=== PATIENT | male | born 1935 | race Caucasian/White ===

== ENCOUNTER → 2017-07-21 06:07 | Outpatient (CLI) | payer OTHER ==
[~2017-07-21 06:07] MED LIST: CALTRATE 61 TAB.CHEW; DIOVAN160 M1; HEMATRON P.O.1 UDTAB; LIPITOR40 MG; NORVASC5 MG; SECTRAL200 MG; [UNRECOGNIZED DRUG - OTHER]
== END | disposition home or self-care (01) ==
LOC: LAB 06:07
DX: Z80.42 Family history of malignant neoplasm of prostate (principal); C90.00 Multiple myeloma not having achieved remission; D57.3 Sickle-cell trait; C61 Malignant neoplasm of prostate; Z85.46 Personal history of malignant neoplasm of prostate; D68.8 Other specified coagulation defects; E08.65 Diabetes mellitus due to underlying condition with hyperglycemia; E08.21 Diabetes mellitus due to underlying condition with diabetic nephropathy; E08.22 Diabetes mellitus due to underlying condition with diabetic chronic kidney disease; E08.42 Diabetes mellitus due to underlying condition with diabetic polyneuropathy; I10 Essential (primary) hypertension; I73.89 Other specified peripheral vascular diseases; E78.4 Other hyperlipidemia; E03.8 Other specified hypothyroidism; D50.8 Other iron deficiency anemias; D51.8 Other vitamin B12 deficiency anemias; R68.89 Other general symptoms and signs; D64.89 Other specified anemias; I11.9 Hypertensive heart disease without heart failure; E78.2 Mixed hyperlipidemia; R31.9 Hematuria, unspecified; E11.9 Type 2 diabetes mellitus without complications

== ENCOUNTER 2017-10-29 11:07 | Emergency (ER) | payer OTHER ==
[~2017-10-29] VITALS: Ht 172.7 cm; Wt 94.3 kg
== END 2017-10-29 13:43 | disposition home or self-care (01) ==
LOC: ER 11:07
DX: J45.998 Other asthma (principal); J11.1 Influenza due to unidentified influenza virus with other respiratory manifestations

== ENCOUNTER → 2017-11-08 09:44 | Outpatient (CLI) | payer OTHER | END | disposition home or self-care (01) | LOC: LAB 09:44 | DX: Z80.42 Family history of malignant neoplasm of prostate (principal); C90.00 Multiple myeloma not having achieved remission; D57.3 Sickle-cell trait; C61 Malignant neoplasm of prostate; Z85.46 Personal history of malignant neoplasm of prostate; D68.8 Other specified coagulation defects; E08.65 Diabetes mellitus due to underlying condition with hyperglycemia; E08.21 Diabetes mellitus due to underlying condition with diabetic nephropathy; E08.22 Diabetes mellitus due to underlying condition with diabetic chronic kidney disease; E08.42 Diabetes mellitus due to underlying condition with diabetic polyneuropathy; I10 Essential (primary) hypertension; E03.8 Other specified hypothyroidism; E78.2 Mixed hyperlipidemia; C18.9 Malignant neoplasm of colon, unspecified; I73.89 Other specified peripheral vascular diseases; E78.4 Other hyperlipidemia ==

== ENCOUNTER → 2018-03-15 06:06 | Outpatient (CLI) | payer OTHER | END | disposition home or self-care (01) | LOC: LAB 06:06 | DX: Z80.42 Family history of malignant neoplasm of prostate (principal); C90.00 Multiple myeloma not having achieved remission; D57.3 Sickle-cell trait; C61 Malignant neoplasm of prostate; Z85.46 Personal history of malignant neoplasm of prostate; D68.8 Other specified coagulation defects; E08.65 Diabetes mellitus due to underlying condition with hyperglycemia; E08.21 Diabetes mellitus due to underlying condition with diabetic nephropathy; E08.22 Diabetes mellitus due to underlying condition with diabetic chronic kidney disease; E08.42 Diabetes mellitus due to underlying condition with diabetic polyneuropathy; I10 Essential (primary) hypertension; I73.89 Other specified peripheral vascular diseases; E78.4 Other hyperlipidemia; E03.8 Other specified hypothyroidism; D50.8 Other iron deficiency anemias; D51.8 Other vitamin B12 deficiency anemias ==

== ENCOUNTER → 2018-05-23 06:29 | Outpatient (CLI) | payer OTHER | END | disposition home or self-care (01) | LOC: LAB 06:29 | DX: Z80.42 Family history of malignant neoplasm of prostate (principal); C90.00 Multiple myeloma not having achieved remission; D57.3 Sickle-cell trait; C61 Malignant neoplasm of prostate; Z85.46 Personal history of malignant neoplasm of prostate; D68.8 Other specified coagulation defects; I10 Essential (primary) hypertension; I73.89 Other specified peripheral vascular diseases; E03.8 Other specified hypothyroidism; D50.8 Other iron deficiency anemias; D51.8 Other vitamin B12 deficiency anemias; E78.2 Mixed hyperlipidemia; E11.65 Type 2 diabetes mellitus with hyperglycemia ==

== ENCOUNTER 2018-07-07 06:33 | Outpatient (CLI) | payer OTHER | END 2018-07-07 06:44 | disposition home or self-care (01) | LOC: LAB 06:33 | DX: C90.00 Multiple myeloma not having achieved remission (principal); R97.0 Elevated carcinoembryonic antigen [CEA]; R97.20 Elevated prostate specific antigen [PSA]; R97.8 Other abnormal tumor markers; Z80.42 Family history of malignant neoplasm of prostate; D57.3 Sickle-cell trait; C61 Malignant neoplasm of prostate; Z85.46 Personal history of malignant neoplasm of prostate; D68.8 Other specified coagulation defects; E08.65 Diabetes mellitus due to underlying condition with hyperglycemia; E08.21 Diabetes mellitus due to underlying condition with diabetic nephropathy; E08.22 Diabetes mellitus due to underlying condition with diabetic chronic kidney disease; E08.42 Diabetes mellitus due to underlying condition with diabetic polyneuropathy; I10 Essential (primary) hypertension; E78.89 Other lipoprotein metabolism disorders; E78.49 Other hyperlipidemia; E03.8 Other specified hypothyroidism ==

== ENCOUNTER 2018-08-10 06:40 | Outpatient (CLI) | payer OTHER | END 2018-08-10 06:48 | disposition home or self-care (01) | LOC: LAB 06:40 | DX: Z80.42 Family history of malignant neoplasm of prostate (principal); C90.00 Multiple myeloma not having achieved remission; D57.3 Sickle-cell trait; C61 Malignant neoplasm of prostate; Z85.46 Personal history of malignant neoplasm of prostate; D68.8 Other specified coagulation defects; E08.65 Diabetes mellitus due to underlying condition with hyperglycemia; E08.21 Diabetes mellitus due to underlying condition with diabetic nephropathy; E08.22 Diabetes mellitus due to underlying condition with diabetic chronic kidney disease; I10 Essential (primary) hypertension; I73.89 Other specified peripheral vascular diseases; E03.8 Other specified hypothyroidism; R68.89 Other general symptoms and signs; I11.9 Hypertensive heart disease without heart failure; E78.00 Pure hypercholesterolemia, unspecified; R31.29 Other microscopic hematuria; E11.9 Type 2 diabetes mellitus without complications; E78.49 Other hyperlipidemia ==

== ENCOUNTER 2018-09-08 06:28 | Outpatient (CLI) | payer OTHER | END 2018-09-08 06:31 | disposition home or self-care (01) | LOC: LAB 06:28 | DX: Z80.42 Family history of malignant neoplasm of prostate (principal); C90.00 Multiple myeloma not having achieved remission; D57.3 Sickle-cell trait; C61 Malignant neoplasm of prostate; Z85.46 Personal history of malignant neoplasm of prostate; D68.8 Other specified coagulation defects; E08.65 Diabetes mellitus due to underlying condition with hyperglycemia; E08.21 Diabetes mellitus due to underlying condition with diabetic nephropathy; E08.22 Diabetes mellitus due to underlying condition with diabetic chronic kidney disease; E08.42 Diabetes mellitus due to underlying condition with diabetic polyneuropathy; I10 Essential (primary) hypertension; I73.89 Other specified peripheral vascular diseases; E78.49 Other hyperlipidemia; E03.8 Other specified hypothyroidism; D50.8 Other iron deficiency anemias; D51.8 Other vitamin B12 deficiency anemias ==

== ENCOUNTER 2018-10-06 06:27 | Outpatient (CLI) | payer OTHER | END 2018-10-06 06:35 | disposition home or self-care (01) | LOC: LAB 06:27 | DX: I10 Essential (primary) hypertension (principal); C90.00 Multiple myeloma not having achieved remission; Z80.42 Family history of malignant neoplasm of prostate; D57.3 Sickle-cell trait; C61 Malignant neoplasm of prostate; Z85.46 Personal history of malignant neoplasm of prostate; D68.8 Other specified coagulation defects; E08.65 Diabetes mellitus due to underlying condition with hyperglycemia; E08.22 Diabetes mellitus due to underlying condition with diabetic chronic kidney disease; E08.42 Diabetes mellitus due to underlying condition with diabetic polyneuropathy; I73.89 Other specified peripheral vascular diseases; E78.49 Other hyperlipidemia; E03.8 Other specified hypothyroidism; D50.8 Other iron deficiency anemias; D51.8 Other vitamin B12 deficiency anemias ==

== ENCOUNTER → 2018-10-26 06:31 | Outpatient (CLI) | payer OTHER | END | disposition home or self-care (01) | LOC: LAB 06:31 | DX: N18.2 Chronic kidney disease, stage 2 (mild) (principal); E11.21 Type 2 diabetes mellitus with diabetic nephropathy; R80.8 Other proteinuria ==

== ENCOUNTER 2018-11-22 06:22 | Outpatient (CLI) | payer OTHER | END 2018-11-22 18:23 | disposition home or self-care (01) | LOC: LAB 06:22 | DX: E03.8 Other specified hypothyroidism (principal); E78.49 Other hyperlipidemia; C90.00 Multiple myeloma not having achieved remission; D57.3 Sickle-cell trait; C61 Malignant neoplasm of prostate; Z80.42 Family history of malignant neoplasm of prostate; D68.8 Other specified coagulation defects; E08.65 Diabetes mellitus due to underlying condition with hyperglycemia; E08.21 Diabetes mellitus due to underlying condition with diabetic nephropathy; E08.22 Diabetes mellitus due to underlying condition with diabetic chronic kidney disease; E08.42 Diabetes mellitus due to underlying condition with diabetic polyneuropathy; I10 Essential (primary) hypertension; I73.89 Other specified peripheral vascular diseases ==

== ENCOUNTER → 2018-12-21 06:13 | Outpatient (CLI) | payer OTHER | END | disposition home or self-care (01) | LOC: LAB 06:13 | DX: E03.8 Other specified hypothyroidism (principal); E78.49 Other hyperlipidemia; Z80.42 Family history of malignant neoplasm of prostate; C90.00 Multiple myeloma not having achieved remission; D57.3 Sickle-cell trait; C61 Malignant neoplasm of prostate; Z85.46 Personal history of malignant neoplasm of prostate; D68.8 Other specified coagulation defects; E08.65 Diabetes mellitus due to underlying condition with hyperglycemia; E08.21 Diabetes mellitus due to underlying condition with diabetic nephropathy; E08.22 Diabetes mellitus due to underlying condition with diabetic chronic kidney disease; E08.42 Diabetes mellitus due to underlying condition with diabetic polyneuropathy; I10 Essential (primary) hypertension; I73.89 Other specified peripheral vascular diseases ==

== ENCOUNTER 2019-01-17 06:40 | Outpatient (CLI) | payer OTHER | END 2019-01-17 06:45 | disposition home or self-care (01) | LOC: LAB 06:40 | DX: D50.8 Other iron deficiency anemias (principal); I10 Essential (primary) hypertension; Z80.42 Family history of malignant neoplasm of prostate; C90.00 Multiple myeloma not having achieved remission; D57.3 Sickle-cell trait; C61 Malignant neoplasm of prostate; Z85.46 Personal history of malignant neoplasm of prostate; D68.8 Other specified coagulation defects; E08.65 Diabetes mellitus due to underlying condition with hyperglycemia; E08.21 Diabetes mellitus due to underlying condition with diabetic nephropathy; E08.22 Diabetes mellitus due to underlying condition with diabetic chronic kidney disease; E08.42 Diabetes mellitus due to underlying condition with diabetic polyneuropathy; I73.89 Other specified peripheral vascular diseases; E78.49 Other hyperlipidemia; E03.8 Other specified hypothyroidism ==

== ENCOUNTER 2019-02-28 07:59 | Outpatient (CLI) | payer OTHER | END 2019-02-28 08:06 | disposition home or self-care (01) | LOC: LAB 07:59 | DX: C90.00 Multiple myeloma not having achieved remission (principal); Z80.42 Family history of malignant neoplasm of prostate; D57.3 Sickle-cell trait; C61 Malignant neoplasm of prostate; Z85.46 Personal history of malignant neoplasm of prostate; D68.8 Other specified coagulation defects; I10 Essential (primary) hypertension; I73.89 Other specified peripheral vascular diseases; E78.49 Other hyperlipidemia; E03.8 Other specified hypothyroidism; E11.65 Type 2 diabetes mellitus with hyperglycemia ==

== ENCOUNTER 2019-03-09 07:11 | Outpatient (CLI) | payer OTHER | END 2019-03-09 07:21 | disposition home or self-care (01) | LOC: SONOGRAMA 07:11 → MAMO-SONO 07:15 → SONOGRAMA 07:21 | DX: R10.11 Right upper quadrant pain (principal) ==

== ENCOUNTER 2019-04-05 06:20 | Outpatient (CLI) | payer OTHER | END 2019-04-05 06:25 | disposition home or self-care (01) | LOC: LAB 06:20 | DX: C90.00 Multiple myeloma not having achieved remission (principal); D57.3 Sickle-cell trait; C61 Malignant neoplasm of prostate; Z85.46 Personal history of malignant neoplasm of prostate; D68.8 Other specified coagulation defects; E08.65 Diabetes mellitus due to underlying condition with hyperglycemia; E08.21 Diabetes mellitus due to underlying condition with diabetic nephropathy; E08.22 Diabetes mellitus due to underlying condition with diabetic chronic kidney disease; E08.42 Diabetes mellitus due to underlying condition with diabetic polyneuropathy; I10 Essential (primary) hypertension; I73.89 Other specified peripheral vascular diseases; E78.49 Other hyperlipidemia; E03.8 Other specified hypothyroidism; Z80.42 Family history of malignant neoplasm of prostate ==

== ENCOUNTER 2019-04-18 06:28 | Outpatient (CLI) | payer OTHER | END 2019-04-18 06:32 | disposition home or self-care (01) | LOC: LAB 06:28 | DX: I10 Essential (primary) hypertension (principal); R80.8 Other proteinuria ==

== ENCOUNTER 2019-05-08 06:11 | Outpatient (CLI) | payer OTHER | END 2019-05-08 06:16 | disposition home or self-care (01) | LOC: LAB 06:11 | DX: D50.8 Other iron deficiency anemias (principal); I10 Essential (primary) hypertension; C90.00 Multiple myeloma not having achieved remission; Z80.42 Family history of malignant neoplasm of prostate; D57.3 Sickle-cell trait; C61 Malignant neoplasm of prostate; Z85.46 Personal history of malignant neoplasm of prostate; D68.8 Other specified coagulation defects; E08.65 Diabetes mellitus due to underlying condition with hyperglycemia; E08.21 Diabetes mellitus due to underlying condition with diabetic nephropathy; E08.22 Diabetes mellitus due to underlying condition with diabetic chronic kidney disease; E08.42 Diabetes mellitus due to underlying condition with diabetic polyneuropathy; I73.89 Other specified peripheral vascular diseases; E78.49 Other hyperlipidemia; E03.8 Other specified hypothyroidism ==

== ENCOUNTER → 2019-06-09 06:27 | Outpatient (CLI) | payer OTHER | END | disposition home or self-care (01) | LOC: LAB 06:27 | DX: D50.8 Other iron deficiency anemias (principal); I10 Essential (primary) hypertension; Z80.42 Family history of malignant neoplasm of prostate; C90.00 Multiple myeloma not having achieved remission; D57.3 Sickle-cell trait; C61 Malignant neoplasm of prostate; Z85.46 Personal history of malignant neoplasm of prostate; D68.8 Other specified coagulation defects; E08.65 Diabetes mellitus due to underlying condition with hyperglycemia; E08.21 Diabetes mellitus due to underlying condition with diabetic nephropathy; I73.89 Other specified peripheral vascular diseases; E03.8 Other specified hypothyroidism ==

== ENCOUNTER 2019-07-11 06:12 | Outpatient (CLI) | payer OTHER | END 2019-07-11 15:00 | disposition home or self-care (01) | LOC: LAB 06:12 | DX: D50.8 Other iron deficiency anemias (principal); I10 Essential (primary) hypertension; Z80.42 Family history of malignant neoplasm of prostate; C90.00 Multiple myeloma not having achieved remission; D57.3 Sickle-cell trait; C61 Malignant neoplasm of prostate; Z85.46 Personal history of malignant neoplasm of prostate; D68.8 Other specified coagulation defects; E08.65 Diabetes mellitus due to underlying condition with hyperglycemia; E08.21 Diabetes mellitus due to underlying condition with diabetic nephropathy; E08.22 Diabetes mellitus due to underlying condition with diabetic chronic kidney disease; E08.42 Diabetes mellitus due to underlying condition with diabetic polyneuropathy; I73.89 Other specified peripheral vascular diseases; E78.49 Other hyperlipidemia; E03.8 Other specified hypothyroidism; D51.8 Other vitamin B12 deficiency anemias ==

== ENCOUNTER 2019-08-07 06:21 | Outpatient (CLI) | payer OTHER | END 2019-08-07 06:25 | disposition home or self-care (01) | LOC: LAB 06:21 | DX: N18.3 Chronic kidney disease, stage 3 (moderate) (principal); R80.8 Other proteinuria ==

== ENCOUNTER 2019-08-07 07:26 | Outpatient (CLI) | payer OTHER | END 2019-08-07 07:28 | disposition home or self-care (01) | LOC: SONOGRAMA 07:26 | DX: D57.3 Sickle-cell trait (principal); C61 Malignant neoplasm of prostate; Z85.46 Personal history of malignant neoplasm of prostate; Z80.42 Family history of malignant neoplasm of prostate; C90.00 Multiple myeloma not having achieved remission; D68.8 Other specified coagulation defects; E08.65 Diabetes mellitus due to underlying condition with hyperglycemia; E08.21 Diabetes mellitus due to underlying condition with diabetic nephropathy; E08.22 Diabetes mellitus due to underlying condition with diabetic chronic kidney disease; E08.42 Diabetes mellitus due to underlying condition with diabetic polyneuropathy; I10 Essential (primary) hypertension; I73.89 Other specified peripheral vascular diseases; E78.49 Other hyperlipidemia; E03.8 Other specified hypothyroidism ==

== ENCOUNTER → 2019-08-25 06:26 | Outpatient (CLI) | payer OTHER | END | disposition home or self-care (01) | LOC: LAB 06:26 | DX: D50.8 Other iron deficiency anemias (principal); I10 Essential (primary) hypertension; D47.2 Monoclonal gammopathy; C90.00 Multiple myeloma not having achieved remission; Z80.42 Family history of malignant neoplasm of prostate; D57.3 Sickle-cell trait; C61 Malignant neoplasm of prostate; Z85.46 Personal history of malignant neoplasm of prostate; D68.8 Other specified coagulation defects; I73.89 Other specified peripheral vascular diseases; E78.49 Other hyperlipidemia; E03.8 Other specified hypothyroidism; E11.65 Type 2 diabetes mellitus with hyperglycemia ==

== ENCOUNTER 2019-11-06 06:22 | Outpatient (CLI) | payer OTHER | END 2019-11-06 06:29 | disposition home or self-care (01) | LOC: LAB 06:22 | DX: R68.89 Other general symptoms and signs (principal); E78.00 Pure hypercholesterolemia, unspecified; R31.29 Other microscopic hematuria; E03.8 Other specified hypothyroidism; D50.8 Other iron deficiency anemias; I10 Essential (primary) hypertension; Z80.42 Family history of malignant neoplasm of prostate; C90.00 Multiple myeloma not having achieved remission; D57.3 Sickle-cell trait; C61 Malignant neoplasm of prostate; Z85.46 Personal history of malignant neoplasm of prostate; D68.8 Other specified coagulation defects; E08.65 Diabetes mellitus due to underlying condition with hyperglycemia; E08.21 Diabetes mellitus due to underlying condition with diabetic nephropathy; E08.22 Diabetes mellitus due to underlying condition with diabetic chronic kidney disease; E08.42 Diabetes mellitus due to underlying condition with diabetic polyneuropathy; I73.89 Other specified peripheral vascular diseases; E78.49 Other hyperlipidemia ==

== ENCOUNTER 2019-11-28 06:09 | Outpatient (CLI) | payer OTHER | END 2019-11-28 06:42 | disposition home or self-care (01) | LOC: LAB 06:09 | PROVIDERS: ATTEND Internal Medicine Hematology & Oncology | DX: D50.8 Other iron deficiency anemias (principal); I10 Essential (primary) hypertension; D47.2 Monoclonal gammopathy; C90.00 Multiple myeloma not having achieved remission; Z80.42 Family history of malignant neoplasm of prostate; D57.3 Sickle-cell trait; C61 Malignant neoplasm of prostate; Z85.46 Personal history of malignant neoplasm of prostate; D68.8 Other specified coagulation defects; E08.65 Diabetes mellitus due to underlying condition with hyperglycemia; E08.21 Diabetes mellitus due to underlying condition with diabetic nephropathy; E08.22 Diabetes mellitus due to underlying condition with diabetic chronic kidney disease; E08.42 Diabetes mellitus due to underlying condition with diabetic polyneuropathy; I73.89 Other specified peripheral vascular diseases; E78.49 Other hyperlipidemia; E03.8 Other specified hypothyroidism ==

== ENCOUNTER → 2019-12-28 06:16 | Outpatient (CLI) | payer OTHER | END | disposition home or self-care (01) | LOC: LAB 06:16 | PROVIDERS: ATTEND Internal Medicine Hematology & Oncology | DX: D50.8 Other iron deficiency anemias (principal); I10 Essential (primary) hypertension; Z80.42 Family history of malignant neoplasm of prostate; C90.00 Multiple myeloma not having achieved remission; D57.3 Sickle-cell trait; C61 Malignant neoplasm of prostate; Z85.46 Personal history of malignant neoplasm of prostate; D68.8 Other specified coagulation defects; I73.9 Peripheral vascular disease, unspecified; E78.49 Other hyperlipidemia; E03.8 Other specified hypothyroidism; E11.65 Type 2 diabetes mellitus with hyperglycemia ==

== ENCOUNTER 2020-01-29 06:10 | Outpatient (CLI) | payer OTHER | END 2020-01-29 06:15 | disposition home or self-care (01) | LOC: LAB 06:10 | PROVIDERS: ATTEND Internal Medicine Nephrology | DX: N18.6 End stage renal disease (principal); E11.21 Type 2 diabetes mellitus with diabetic nephropathy; R80.8 Other proteinuria ==

== ENCOUNTER 2020-02-14 06:16 | Outpatient (CLI) | payer OTHER | END 2020-02-14 06:21 | disposition home or self-care (01) | LOC: LAB 06:16 | PROVIDERS: ATTEND Internal Medicine Hematology & Oncology | DX: D50.8 Other iron deficiency anemias (principal); I10 Essential (primary) hypertension; C25.9 Malignant neoplasm of pancreas, unspecified; R97.8 Other abnormal tumor markers; R97.0 Elevated carcinoembryonic antigen [CEA]; Z80.42 Family history of malignant neoplasm of prostate; C90.00 Multiple myeloma not having achieved remission; D57.3 Sickle-cell trait; C61 Malignant neoplasm of prostate; Z85.46 Personal history of malignant neoplasm of prostate; D68.8 Other specified coagulation defects; E08.65 Diabetes mellitus due to underlying condition with hyperglycemia; E08.21 Diabetes mellitus due to underlying condition with diabetic nephropathy; E08.22 Diabetes mellitus due to underlying condition with diabetic chronic kidney disease; I73.89 Other specified peripheral vascular diseases; E78.49 Other hyperlipidemia; E03.8 Other specified hypothyroidism ==

== ENCOUNTER → 2020-03-12 06:16 | Outpatient (CLI) | payer OTHER | END | disposition home or self-care (01) | LOC: LAB 06:16 | PROVIDERS: ATTEND Internal Medicine Hematology & Oncology | DX: D50.8 Other iron deficiency anemias (principal); I10 Essential (primary) hypertension; D47.2 Monoclonal gammopathy; C90.00 Multiple myeloma not having achieved remission; Z80.42 Family history of malignant neoplasm of prostate; D57.3 Sickle-cell trait; C61 Malignant neoplasm of prostate; Z85.46 Personal history of malignant neoplasm of prostate; D68.8 Other specified coagulation defects; E08.65 Diabetes mellitus due to underlying condition with hyperglycemia; E08.21 Diabetes mellitus due to underlying condition with diabetic nephropathy; E08.22 Diabetes mellitus due to underlying condition with diabetic chronic kidney disease; E08.42 Diabetes mellitus due to underlying condition with diabetic polyneuropathy; I73.89 Other specified peripheral vascular diseases; E78.49 Other hyperlipidemia; E03.8 Other specified hypothyroidism ==

== ENCOUNTER → 2020-04-16 06:14 | Outpatient (CLI) | payer OTHER | END | disposition home or self-care (01) | LOC: LAB 06:14 | PROVIDERS: ATTEND Internal Medicine Hematology & Oncology | DX: D50.8 Other iron deficiency anemias (principal); I10 Essential (primary) hypertension; D69.8 Other specified hemorrhagic conditions; R97.0 Elevated carcinoembryonic antigen [CEA]; R97.8 Other abnormal tumor markers; Z80.42 Family history of malignant neoplasm of prostate; C90.00 Multiple myeloma not having achieved remission; D57.3 Sickle-cell trait; C61 Malignant neoplasm of prostate; Z85.46 Personal history of malignant neoplasm of prostate; D68.8 Other specified coagulation defects; E08.65 Diabetes mellitus due to underlying condition with hyperglycemia; E08.21 Diabetes mellitus due to underlying condition with diabetic nephropathy; E08.22 Diabetes mellitus due to underlying condition with diabetic chronic kidney disease; E08.42 Diabetes mellitus due to underlying condition with diabetic polyneuropathy; I73.89 Other specified peripheral vascular diseases; E78.49 Other hyperlipidemia; E03.8 Other specified hypothyroidism ==

== ENCOUNTER → 2020-05-13 06:23 | Outpatient (CLI) | payer OTHER | END | disposition home or self-care (01) | LOC: LAB 06:23 | PROVIDERS: ATTEND Internal Medicine Hematology & Oncology | DX: K76.89 Other specified diseases of liver (principal); I10 Essential (primary) hypertension; Z80.42 Family history of malignant neoplasm of prostate; C90.00 Multiple myeloma not having achieved remission; D57.3 Sickle-cell trait; C61 Malignant neoplasm of prostate; Z85.46 Personal history of malignant neoplasm of prostate; E08.21 Diabetes mellitus due to underlying condition with diabetic nephropathy; E08.22 Diabetes mellitus due to underlying condition with diabetic chronic kidney disease; E08.42 Diabetes mellitus due to underlying condition with diabetic polyneuropathy; D50.8 Other iron deficiency anemias; R74.02 Elevation of levels of lactic acid dehydrogenase [LDH]; D69.6 Thrombocytopenia, unspecified; E03.8 Other specified hypothyroidism; E78.49 Other hyperlipidemia; I73.89 Other specified peripheral vascular diseases ==

== ENCOUNTER 2020-07-29 06:24 | Outpatient (CLI) | payer OTHER | END 2020-07-29 06:31 | disposition home or self-care (01) | LOC: LAB 06:24 | PROVIDERS: ATTEND Internal Medicine | DX: I10 Essential (primary) hypertension (principal); E78.2 Mixed hyperlipidemia; M83.8 Other adult osteomalacia; R68.89 Other general symptoms and signs; E78.00 Pure hypercholesterolemia, unspecified; R31.29 Other microscopic hematuria; E03.8 Other specified hypothyroidism; E11.9 Type 2 diabetes mellitus without complications ==

== ENCOUNTER 2020-09-03 06:26 | Outpatient (CLI) | payer OTHER | END 2020-09-03 06:33 | disposition home or self-care (01) | LOC: LAB 06:26 | PROVIDERS: ATTEND Internal Medicine Nephrology | DX: N18.31 Chronic kidney disease, stage 3a (principal); I10 Essential (primary) hypertension; R80.8 Other proteinuria ==

== ENCOUNTER → 2020-09-11 06:18 | Outpatient (CLI) | payer OTHER | END | disposition home or self-care (01) | LOC: LAB 06:18 | PROVIDERS: ATTEND Internal Medicine Hematology & Oncology | DX: C90.00 Multiple myeloma not having achieved remission (principal); Z80.42 Family history of malignant neoplasm of prostate; D57.3 Sickle-cell trait; C61 Malignant neoplasm of prostate; D50.8 Other iron deficiency anemias; K76.89 Other specified diseases of liver; R79.89 Other specified abnormal findings of blood chemistry; I10 Essential (primary) hypertension; R74.02 Elevation of levels of lactic acid dehydrogenase [LDH]; D47.2 Monoclonal gammopathy; Z85.46 Personal history of malignant neoplasm of prostate; D68.8 Other specified coagulation defects; E08.65 Diabetes mellitus due to underlying condition with hyperglycemia; E08.21 Diabetes mellitus due to underlying condition with diabetic nephropathy; E08.22 Diabetes mellitus due to underlying condition with diabetic chronic kidney disease; E08.42 Diabetes mellitus due to underlying condition with diabetic polyneuropathy; I73.89 Other specified peripheral vascular diseases; E78.49 Other hyperlipidemia; I73.9 Peripheral vascular disease, unspecified; E03.8 Other specified hypothyroidism ==

== ENCOUNTER → 2020-10-29 06:15 | Outpatient (CLI) | payer OTHER | END | disposition home or self-care (01) | LOC: LAB 06:15 | PROVIDERS: ATTEND Internal Medicine Hematology & Oncology | DX: C90.00 Multiple myeloma not having achieved remission (principal); Z80.42 Family history of malignant neoplasm of prostate; D57.3 Sickle-cell trait; C61 Malignant neoplasm of prostate; Z85.46 Personal history of malignant neoplasm of prostate; D68.8 Other specified coagulation defects; E08.65 Diabetes mellitus due to underlying condition with hyperglycemia; E08.21 Diabetes mellitus due to underlying condition with diabetic nephropathy; E08.22 Diabetes mellitus due to underlying condition with diabetic chronic kidney disease; E08.42 Diabetes mellitus due to underlying condition with diabetic polyneuropathy; I10 Essential (primary) hypertension; I73.9 Peripheral vascular disease, unspecified; E78.49 Other hyperlipidemia; E03.8 Other specified hypothyroidism ==

== ENCOUNTER 2020-11-26 06:21 | Outpatient (CLI) | payer OTHER | END 2020-11-26 06:27 | disposition home or self-care (01) | LOC: LAB 06:21 | PROVIDERS: ATTEND Internal Medicine Hematology & Oncology | DX: D50.8 Other iron deficiency anemias (principal); R79.9 Abnormal finding of blood chemistry, unspecified; I10 Essential (primary) hypertension; R74.02 Elevation of levels of lactic acid dehydrogenase [LDH]; K76.89 Other specified diseases of liver; Z80.42 Family history of malignant neoplasm of prostate; C90.00 Multiple myeloma not having achieved remission; D57.3 Sickle-cell trait; C61 Malignant neoplasm of prostate; Z85.46 Personal history of malignant neoplasm of prostate; D68.9 Coagulation defect, unspecified; E08.65 Diabetes mellitus due to underlying condition with hyperglycemia; E08.21 Diabetes mellitus due to underlying condition with diabetic nephropathy; E08.22 Diabetes mellitus due to underlying condition with diabetic chronic kidney disease; E08.42 Diabetes mellitus due to underlying condition with diabetic polyneuropathy; E78.5 Hyperlipidemia, unspecified; E03.9 Hypothyroidism, unspecified ==

== ENCOUNTER 2020-12-17 06:16 | Outpatient (CLI) | payer OTHER | END 2020-12-17 06:21 | disposition home or self-care (01) | LOC: LAB 06:16 | PROVIDERS: ATTEND Internal Medicine | DX: R68.89 Other general symptoms and signs (principal); I11.9 Hypertensive heart disease without heart failure; E78.2 Mixed hyperlipidemia; E03.9 Hypothyroidism, unspecified ==

== ENCOUNTER → 2020-12-31 06:19 | Outpatient (CLI) | payer OTHER | END | disposition home or self-care (01) | LOC: LAB 06:19 | PROVIDERS: ATTEND Internal Medicine Hematology & Oncology | DX: D50.8 Other iron deficiency anemias (principal); R79.89 Other specified abnormal findings of blood chemistry; I10 Essential (primary) hypertension; R74.02 Elevation of levels of lactic acid dehydrogenase [LDH]; K76.89 Other specified diseases of liver; D47.2 Monoclonal gammopathy; C90.00 Multiple myeloma not having achieved remission; D63.8 Anemia in other chronic diseases classified elsewhere; Z80.42 Family history of malignant neoplasm of prostate; D57.3 Sickle-cell trait; C61 Malignant neoplasm of prostate; Z85.46 Personal history of malignant neoplasm of prostate; D68.8 Other specified coagulation defects; E08.65 Diabetes mellitus due to underlying condition with hyperglycemia; E08.21 Diabetes mellitus due to underlying condition with diabetic nephropathy; E08.22 Diabetes mellitus due to underlying condition with diabetic chronic kidney disease; E08.42 Diabetes mellitus due to underlying condition with diabetic polyneuropathy; I73.89 Other specified peripheral vascular diseases; E78.89 Other lipoprotein metabolism disorders; E03.8 Other specified hypothyroidism ==

== ENCOUNTER 2021-02-17 06:18 | Outpatient (CLI) | payer OTHER | END 2021-02-17 06:21 | disposition home or self-care (01) | LOC: LAB 06:18 | PROVIDERS: ATTEND Internal Medicine Hematology & Oncology | DX: D50.8 Other iron deficiency anemias (principal); E03.8 Other specified hypothyroidism; R79.89 Other specified abnormal findings of blood chemistry; K76.89 Other specified diseases of liver; I10 Essential (primary) hypertension; R74.02 Elevation of levels of lactic acid dehydrogenase [LDH]; Z80.42 Family history of malignant neoplasm of prostate; C90.00 Multiple myeloma not having achieved remission; D57.3 Sickle-cell trait; C61 Malignant neoplasm of prostate; Z85.46 Personal history of malignant neoplasm of prostate; D68.8 Other specified coagulation defects; E08.65 Diabetes mellitus due to underlying condition with hyperglycemia; E08.21 Diabetes mellitus due to underlying condition with diabetic nephropathy; E08.22 Diabetes mellitus due to underlying condition with diabetic chronic kidney disease; I73.89 Other specified peripheral vascular diseases; E78.49 Other hyperlipidemia ==

== ENCOUNTER 2021-03-12 06:13 | Outpatient (CLI) | payer OTHER | END 2021-03-12 06:14 | disposition home or self-care (01) | LOC: LAB 06:13 | PROVIDERS: ATTEND Internal Medicine Hematology & Oncology | DX: D50.8 Other iron deficiency anemias (principal); D68.8 Other specified coagulation defects; I10 Essential (primary) hypertension; R74.02 Elevation of levels of lactic acid dehydrogenase [LDH]; K76.89 Other specified diseases of liver; R79.89 Other specified abnormal findings of blood chemistry; Z80.42 Family history of malignant neoplasm of prostate; C90.00 Multiple myeloma not having achieved remission; D57.3 Sickle-cell trait; C61 Malignant neoplasm of prostate; Z85.46 Personal history of malignant neoplasm of prostate; I73.89 Other specified peripheral vascular diseases; E78.49 Other hyperlipidemia; E03.8 Other specified hypothyroidism; E11.21 Type 2 diabetes mellitus with diabetic nephropathy; R80.8 Other proteinuria ==

== ENCOUNTER 2021-03-27 12:13 | Outpatient (CLI) | payer OTHER | END 2021-03-27 13:25 | disposition home or self-care (01) | LOC: SONOGRAMA 12:13 | PROVIDERS: ATTEND Internal Medicine Nephrology | DX: R10.2 Pelvic and perineal pain (principal) ==

== ENCOUNTER → 2021-04-14 06:20 | Outpatient (CLI) | payer OTHER | END | disposition home or self-care (01) | LOC: LAB 06:20 | PROVIDERS: ATTEND Internal Medicine Hematology & Oncology | DX: D50.8 Other iron deficiency anemias (principal); R79.89 Other specified abnormal findings of blood chemistry; I10 Essential (primary) hypertension; R74.02 Elevation of levels of lactic acid dehydrogenase [LDH]; K76.89 Other specified diseases of liver; D47.2 Monoclonal gammopathy; C90.00 Multiple myeloma not having achieved remission; D63.8 Anemia in other chronic diseases classified elsewhere; Z80.42 Family history of malignant neoplasm of prostate; D57.3 Sickle-cell trait; C61 Malignant neoplasm of prostate; Z85.46 Personal history of malignant neoplasm of prostate; D68.8 Other specified coagulation defects; E08.65 Diabetes mellitus due to underlying condition with hyperglycemia; E08.21 Diabetes mellitus due to underlying condition with diabetic nephropathy; E08.22 Diabetes mellitus due to underlying condition with diabetic chronic kidney disease; E08.42 Diabetes mellitus due to underlying condition with diabetic polyneuropathy; I73.89 Other specified peripheral vascular diseases; E78.49 Other hyperlipidemia; E03.8 Other specified hypothyroidism ==

== ENCOUNTER 2021-05-26 06:30 | Outpatient (CLI) | payer OTHER | END 2021-05-26 06:32 | disposition home or self-care (01) | LOC: LAB 06:30 | PROVIDERS: ATTEND Internal Medicine Hematology & Oncology | DX: E03.8 Other specified hypothyroidism (principal); D50.8 Other iron deficiency anemias; R79.89 Other specified abnormal findings of blood chemistry; I10 Essential (primary) hypertension; R74.02 Elevation of levels of lactic acid dehydrogenase [LDH]; K76.89 Other specified diseases of liver; Z80.42 Family history of malignant neoplasm of prostate; C90.00 Multiple myeloma not having achieved remission; D57.3 Sickle-cell trait; C61 Malignant neoplasm of prostate; D68.8 Other specified coagulation defects; E08.65 Diabetes mellitus due to underlying condition with hyperglycemia; E08.21 Diabetes mellitus due to underlying condition with diabetic nephropathy; E08.22 Diabetes mellitus due to underlying condition with diabetic chronic kidney disease; E08.42 Diabetes mellitus due to underlying condition with diabetic polyneuropathy; I73.89 Other specified peripheral vascular diseases; E78.49 Other hyperlipidemia ==

== ENCOUNTER 2021-06-04 06:12 | Outpatient (CLI) | payer OTHER | END 2021-06-04 06:13 | disposition home or self-care (01) | LOC: LAB 06:12 | PROVIDERS: ATTEND Internal Medicine Nephrology | DX: I10 Essential (primary) hypertension (principal); E11.21 Type 2 diabetes mellitus with diabetic nephropathy; R80.8 Other proteinuria ==

== ENCOUNTER 2021-07-07 06:13 | Outpatient (CLI) | payer OTHER | END 2021-07-07 06:15 | disposition home or self-care (01) | LOC: LAB 06:13 | PROVIDERS: ATTEND Internal Medicine Hematology & Oncology | DX: D50.8 Other iron deficiency anemias (principal); R74.02 Elevation of levels of lactic acid dehydrogenase [LDH]; K76.89 Other specified diseases of liver; R79.89 Other specified abnormal findings of blood chemistry; Z80.42 Family history of malignant neoplasm of prostate; C90.00 Multiple myeloma not having achieved remission; D57.3 Sickle-cell trait; C61 Malignant neoplasm of prostate; Z85.46 Personal history of malignant neoplasm of prostate; D68.8 Other specified coagulation defects; E08.65 Diabetes mellitus due to underlying condition with hyperglycemia; E08.21 Diabetes mellitus due to underlying condition with diabetic nephropathy; E08.42 Diabetes mellitus due to underlying condition with diabetic polyneuropathy; E08.22 Diabetes mellitus due to underlying condition with diabetic chronic kidney disease; I10 Essential (primary) hypertension; I73.9 Peripheral vascular disease, unspecified; E78.5 Hyperlipidemia, unspecified; E03.8 Other specified hypothyroidism ==

== ENCOUNTER 2021-07-29 06:14 | Outpatient (CLI) | payer OTHER | END 2021-07-29 06:15 | disposition home or self-care (01) | LOC: LAB 06:14 | PROVIDERS: ATTEND Internal Medicine Hematology & Oncology | DX: D50.8 Other iron deficiency anemias (principal); R79.9 Abnormal finding of blood chemistry, unspecified; I10 Essential (primary) hypertension; R74.02 Elevation of levels of lactic acid dehydrogenase [LDH]; K76.89 Other specified diseases of liver; D47.2 Monoclonal gammopathy; C90.00 Multiple myeloma not having achieved remission; D63.8 Anemia in other chronic diseases classified elsewhere ==

== ENCOUNTER 2021-09-03 06:14 | Outpatient (CLI) | payer OTHER | END 2021-09-03 06:15 | disposition home or self-care (01) | LOC: LAB 06:14 | PROVIDERS: ATTEND Internal Medicine Hematology & Oncology | DX: D50.8 Other iron deficiency anemias (principal); R79.9 Abnormal finding of blood chemistry, unspecified; I10 Essential (primary) hypertension; R74.02 Elevation of levels of lactic acid dehydrogenase [LDH]; K76.89 Other specified diseases of liver; D51.8 Other vitamin B12 deficiency anemias; E55.9 Vitamin D deficiency, unspecified; R19.5 Other fecal abnormalities; R97.0 Elevated carcinoembryonic antigen [CEA]; R97.8 Other abnormal tumor markers; R97.20 Elevated prostate specific antigen [PSA]; Z80.42 Family history of malignant neoplasm of prostate; C90.00 Multiple myeloma not having achieved remission; D57.3 Sickle-cell trait; C61 Malignant neoplasm of prostate; Z85.46 Personal history of malignant neoplasm of prostate; D68.9 Coagulation defect, unspecified; E08.65 Diabetes mellitus due to underlying condition with hyperglycemia; E08.22 Diabetes mellitus due to underlying condition with diabetic chronic kidney disease; I73.9 Peripheral vascular disease, unspecified; E78.5 Hyperlipidemia, unspecified; E03.9 Hypothyroidism, unspecified ==

== ENCOUNTER 2021-09-15 06:20 | Outpatient (CLI) | payer OTHER | END 2021-09-15 06:21 | disposition home or self-care (01) | LOC: LAB 06:20 | PROVIDERS: ATTEND Internal Medicine | DX: R68.89 Other general symptoms and signs (principal); I11.9 Hypertensive heart disease without heart failure; E78.00 Pure hypercholesterolemia, unspecified; R31.9 Hematuria, unspecified; E03.9 Hypothyroidism, unspecified; E11.9 Type 2 diabetes mellitus without complications ==

== ENCOUNTER 2021-10-21 06:25 | Outpatient (CLI) | payer OTHER | END 2021-10-21 06:26 | disposition home or self-care (01) | LOC: LAB 06:25 | PROVIDERS: ATTEND Internal Medicine Hematology & Oncology | DX: D50.8 Other iron deficiency anemias (principal); R79.9 Abnormal finding of blood chemistry, unspecified; I10 Essential (primary) hypertension; R74.02 Elevation of levels of lactic acid dehydrogenase [LDH]; K76.89 Other specified diseases of liver; E55.9 Vitamin D deficiency, unspecified; Z80.42 Family history of malignant neoplasm of prostate; C90.00 Multiple myeloma not having achieved remission; D57.3 Sickle-cell trait; C61 Malignant neoplasm of prostate; Z85.46 Personal history of malignant neoplasm of prostate; D68.9 Coagulation defect, unspecified; E08.65 Diabetes mellitus due to underlying condition with hyperglycemia; E08.21 Diabetes mellitus due to underlying condition with diabetic nephropathy; E08.22 Diabetes mellitus due to underlying condition with diabetic chronic kidney disease; E08.42 Diabetes mellitus due to underlying condition with diabetic polyneuropathy; I73.9 Peripheral vascular disease, unspecified; E78.5 Hyperlipidemia, unspecified; E03.9 Hypothyroidism, unspecified; R19.5 Other fecal abnormalities ==

== ENCOUNTER 2021-12-01 06:43 | Outpatient (CLI) | payer OTHER | END 2021-12-01 06:49 | disposition home or self-care (01) | LOC: LAB 06:43 | PROVIDERS: ATTEND Internal Medicine Hematology & Oncology | DX: D57.3 Sickle-cell trait (principal); Z80.42 Family history of malignant neoplasm of prostate; C90.00 Multiple myeloma not having achieved remission; C61 Malignant neoplasm of prostate; Z85.46 Personal history of malignant neoplasm of prostate; D68.9 Coagulation defect, unspecified; E08.65 Diabetes mellitus due to underlying condition with hyperglycemia; I10 Essential (primary) hypertension; I73.9 Peripheral vascular disease, unspecified; E03.9 Hypothyroidism, unspecified; R19.5 Other fecal abnormalities ==

== ENCOUNTER 2022-02-04 06:13 | Outpatient (CLI) | payer OTHER | END 2022-02-04 06:14 | disposition home or self-care (01) | LOC: LAB 06:13 | PROVIDERS: ATTEND Internal Medicine Hematology & Oncology | DX: D50.8 Other iron deficiency anemias (principal); I10 Essential (primary) hypertension; R74.02 Elevation of levels of lactic acid dehydrogenase [LDH]; K76.89 Other specified diseases of liver; C90.00 Multiple myeloma not having achieved remission; D57.3 Sickle-cell trait; C61 Malignant neoplasm of prostate; D68.9 Coagulation defect, unspecified; E08.65 Diabetes mellitus due to underlying condition with hyperglycemia; E08.21 Diabetes mellitus due to underlying condition with diabetic nephropathy; E08.22 Diabetes mellitus due to underlying condition with diabetic chronic kidney disease; E08.42 Diabetes mellitus due to underlying condition with diabetic polyneuropathy; E73.9 Lactose intolerance, unspecified; E78.5 Hyperlipidemia, unspecified; E03.9 Hypothyroidism, unspecified; R19.5 Other fecal abnormalities; Z80.42 Family history of malignant neoplasm of prostate ==

== ENCOUNTER 2022-04-02 06:24 | Outpatient (CLI) | payer OTHER | END 2022-04-02 06:25 | disposition home or self-care (01) | LOC: LAB 06:24 | PROVIDERS: ATTEND Internal Medicine Hematology & Oncology | DX: D50.8 Other iron deficiency anemias (principal); I10 Essential (primary) hypertension; R74.02 Elevation of levels of lactic acid dehydrogenase [LDH]; K76.89 Other specified diseases of liver; D47.2 Monoclonal gammopathy; C90.00 Multiple myeloma not having achieved remission; R19.5 Other fecal abnormalities; E03.9 Hypothyroidism, unspecified; E78.5 Hyperlipidemia, unspecified; E73.9 Lactose intolerance, unspecified; E08.42 Diabetes mellitus due to underlying condition with diabetic polyneuropathy; E08.22 Diabetes mellitus due to underlying condition with diabetic chronic kidney disease; E08.21 Diabetes mellitus due to underlying condition with diabetic nephropathy; E08.65 Diabetes mellitus due to underlying condition with hyperglycemia ==

== ENCOUNTER 2022-04-10 07:25 | Outpatient (CLI) | payer OTHER | END 2022-04-10 07:30 | disposition home or self-care (01) | LOC: TOM 07:25 | PROVIDERS: ATTEND Internal Medicine Hematology & Oncology | DX: R10.10 Upper abdominal pain, unspecified (principal); Z80.42 Family history of malignant neoplasm of prostate; C90.00 Multiple myeloma not having achieved remission; D57.3 Sickle-cell trait; C61 Malignant neoplasm of prostate; Z85.46 Personal history of malignant neoplasm of prostate ==

== ENCOUNTER 2022-06-02 06:11 | Outpatient (CLI) | payer OTHER | END 2022-06-02 06:12 | disposition home or self-care (01) | LOC: LAB 06:11 | PROVIDERS: ATTEND Internal Medicine Hematology & Oncology | DX: D50.8 Other iron deficiency anemias (principal); R79.9 Abnormal finding of blood chemistry, unspecified; I10 Essential (primary) hypertension; R74.02 Elevation of levels of lactic acid dehydrogenase [LDH]; K76.89 Other specified diseases of liver; R68.89 Other general symptoms and signs; I11.9 Hypertensive heart disease without heart failure; E78.00 Pure hypercholesterolemia, unspecified; R31.9 Hematuria, unspecified; E03.9 Hypothyroidism, unspecified; E11.9 Type 2 diabetes mellitus without complications; N18.31 Chronic kidney disease, stage 3a; R80.9 Proteinuria, unspecified ==

== ENCOUNTER → 2022-08-06 06:16 | Outpatient (CLI) | payer OTHER | END | disposition home or self-care (01) | LOC: LAB 06:16 | PROVIDERS: ATTEND Internal Medicine Hematology & Oncology | DX: D50.8 Other iron deficiency anemias (principal); R79.9 Abnormal finding of blood chemistry, unspecified; I10 Essential (primary) hypertension; R74.02 Elevation of levels of lactic acid dehydrogenase [LDH]; K76.89 Other specified diseases of liver; D51.8 Other vitamin B12 deficiency anemias; D47.2 Monoclonal gammopathy; C90.00 Multiple myeloma not having achieved remission; Z80.42 Family history of malignant neoplasm of prostate; D57.3 Sickle-cell trait; C61 Malignant neoplasm of prostate; Z85.46 Personal history of malignant neoplasm of prostate; D68.8 Other specified coagulation defects; E08.65 Diabetes mellitus due to underlying condition with hyperglycemia; E08.21 Diabetes mellitus due to underlying condition with diabetic nephropathy; E08.22 Diabetes mellitus due to underlying condition with diabetic chronic kidney disease; E08.42 Diabetes mellitus due to underlying condition with diabetic polyneuropathy; I73.89 Other specified peripheral vascular diseases; E78.49 Other hyperlipidemia; E03.8 Other specified hypothyroidism; R19.5 Other fecal abnormalities; R10.10 Upper abdominal pain, unspecified ==

== ENCOUNTER 2022-08-27 06:11 | Outpatient (CLI) | payer OTHER | END 2022-08-27 06:12 | disposition home or self-care (01) | LOC: LAB 06:11 | PROVIDERS: ATTEND Internal Medicine Nephrology | DX: N18.32 Chronic kidney disease, stage 3b (principal); R80.9 Proteinuria, unspecified ==

== ENCOUNTER 2022-09-26 12:19 | Emergency (ER) | payer OTHER ==
[~2022-09-26] VITALS: Ht 160 cm; Wt 89.8 kg
== END 2022-09-26 15:14 | disposition home or self-care (01) ==
LOC: ER 12:19
DX: J31.0 Chronic rhinitis (principal); Z88.0 Allergy status to penicillin; Z85.830 Personal history of malignant neoplasm of bone; I10 Essential (primary) hypertension; Z20.822 Contact with and (suspected) exposure to COVID-19

== ENCOUNTER 2022-11-03 06:32 | Outpatient (CLI) | payer OTHER | END 2022-11-03 06:37 | disposition home or self-care (01) | LOC: LAB 06:32 | PROVIDERS: ATTEND Internal Medicine Hematology & Oncology | DX: D50.8 Other iron deficiency anemias (principal); R79.9 Abnormal finding of blood chemistry, unspecified; R74.02 Elevation of levels of lactic acid dehydrogenase [LDH]; K76.89 Other specified diseases of liver; R97.0 Elevated carcinoembryonic antigen [CEA]; R97.8 Other abnormal tumor markers; R97.20 Elevated prostate specific antigen [PSA]; Z80.42 Family history of malignant neoplasm of prostate; C90.00 Multiple myeloma not having achieved remission; D57.3 Sickle-cell trait; C61 Malignant neoplasm of prostate; Z85.46 Personal history of malignant neoplasm of prostate; D68.9 Coagulation defect, unspecified; E08.65 Diabetes mellitus due to underlying condition with hyperglycemia; E08.21 Diabetes mellitus due to underlying condition with diabetic nephropathy; E08.22 Diabetes mellitus due to underlying condition with diabetic chronic kidney disease; E08.42 Diabetes mellitus due to underlying condition with diabetic polyneuropathy; I73.9 Peripheral vascular disease, unspecified; E03.9 Hypothyroidism, unspecified; R19.5 Other fecal abnormalities; R10.10 Upper abdominal pain, unspecified; R68.89 Other general symptoms and signs; I11.9 Hypertensive heart disease without heart failure; E78.00 Pure hypercholesterolemia, unspecified; R31.9 Hematuria, unspecified ==

== ENCOUNTER → 2023-02-10 06:12 | Outpatient (CLI) | payer OTHER | END | disposition home or self-care (01) | LOC: LAB 06:12 | PROVIDERS: ATTEND Internal Medicine Hematology & Oncology | DX: D50.8 Other iron deficiency anemias (principal); R79.9 Abnormal finding of blood chemistry, unspecified; I10 Essential (primary) hypertension; R74.02 Elevation of levels of lactic acid dehydrogenase [LDH]; K76.89 Other specified diseases of liver; D47.2 Monoclonal gammopathy; C90.00 Multiple myeloma not having achieved remission; Z80.42 Family history of malignant neoplasm of prostate; D57.3 Sickle-cell trait; C61 Malignant neoplasm of prostate; Z85.46 Personal history of malignant neoplasm of prostate; D68.9 Coagulation defect, unspecified; E08.65 Diabetes mellitus due to underlying condition with hyperglycemia; E03.9 Hypothyroidism, unspecified; R19.5 Other fecal abnormalities; R10.10 Upper abdominal pain, unspecified ==

== ENCOUNTER 2023-02-10 07:23 | Outpatient (CLI) | payer OTHER | END 2023-02-10 07:30 | disposition home or self-care (01) | LOC: SONOGRAMA 07:23 | PROVIDERS: ATTEND Internal Medicine Nephrology | DX: R10.84 Generalized abdominal pain (principal) ==

== ENCOUNTER 2023-02-23 12:20 | Outpatient (CLI) | payer OTHER | END 2023-02-23 12:23 | disposition home or self-care (01) | LOC: LAB 12:20 | PROVIDERS: ATTEND Radiology Diagnostic Radiology | DX: Z80.42 Family history of malignant neoplasm of prostate (principal); Z88.0 Allergy status to penicillin ==

== ENCOUNTER 2023-03-02 07:09 | Outpatient (CLI) | payer OTHER | END 2023-03-02 07:20 | disposition home or self-care (01) | LOC: LAB 07:09 | PROVIDERS: ATTEND Internal Medicine Hematology & Oncology | DX: N18.31 Chronic kidney disease, stage 3a (principal); I10 Essential (primary) hypertension; R80.9 Proteinuria, unspecified; C25.9 Malignant neoplasm of pancreas, unspecified; R97.0 Elevated carcinoembryonic antigen [CEA]; R97.20 Elevated prostate specific antigen [PSA]; Z80.42 Family history of malignant neoplasm of prostate; C90.00 Multiple myeloma not having achieved remission; D57.3 Sickle-cell trait; C61 Malignant neoplasm of prostate; R77.2 Abnormality of alphafetoprotein; R10.10 Upper abdominal pain, unspecified; R19.5 Other fecal abnormalities; I73.9 Peripheral vascular disease, unspecified; Z85.46 Personal history of malignant neoplasm of prostate; D68.9 Coagulation defect, unspecified; E08.21 Diabetes mellitus due to underlying condition with diabetic nephropathy; E08.22 Diabetes mellitus due to underlying condition with diabetic chronic kidney disease; E08.42 Diabetes mellitus due to underlying condition with diabetic polyneuropathy; E78.5 Hyperlipidemia, unspecified; E03.9 Hypothyroidism, unspecified; E08.65 Diabetes mellitus due to underlying condition with hyperglycemia; R97.8 Other abnormal tumor markers ==

== ENCOUNTER 2023-03-03 08:17 | Outpatient (CLI) | payer OTHER | END 2023-03-03 08:21 | disposition home or self-care (01) | LOC: MRI 08:17 | PROVIDERS: ATTEND Internal Medicine Hematology & Oncology | DX: R10.10 Upper abdominal pain, unspecified (principal); Z80.42 Family history of malignant neoplasm of prostate; Z85.89 Personal history of malignant neoplasm of other organs and systems; K76.89 Other specified diseases of liver | CPT/HCPCS: 74181 ==

== ENCOUNTER 2023-04-02 06:09 | Outpatient (CLI) | payer OTHER ==
[2023-04-02 08:10] LABS: HEMATOCRIT 38.1 % (39.0-48.0); MEAN CELL VOLUME 86.4 fL (80.0-100.00); MEAN CORPUSCULAR HEMOGLOBIN 27.2 pg (27.00-32.0); MEAN CORPUSCULAR HGB CONC 31.4 g/dl (32.0-36.0); PLATELET COUNT 137 K/uL (150-450); RED BLOOD COUNT 4.41 M/uL (4.00-6.00); RED CELL DISTRIBUTION WIDTH 16.2 % (11.5-14.5)
[2023-04-02 08:31] LABS: INR 1.04; PARTIAL THROMBOPLASTIN TIME 25.6 SECONDS (22.0-34.0); PROTHROMBIN TIME 10.9 SECONDS (9.0-11.5)
== END 2023-04-02 06:13 | disposition home or self-care (01) ==
LOC: LAB 06:09
PROVIDERS: ATTEND Radiology Diagnostic Radiology
DX: Z01.812 Encounter for preprocedural laboratory examination (principal); D37.6 Neoplasm of uncertain behavior of liver, gallbladder and bile ducts

== ENCOUNTER → 2023-04-19 06:30 | Outpatient (CLI) | payer OTHER ==
[2023-04-19 07:42] LABS: PH,URINE 5.5 (5.0-8.0); URINE APPEARANCE Clear; URINE BILIRRUBIN Negative (NEGATIVE); URINE BLOOD Negative; URINE COLOR Yellow; URINE GLUCOSE Negative (NEGATIVE); URINE LEUKOCYTE Negative; URINE NITRATE Negative; URINE PROTEIN Negative (NEGATIVE); URINE UROBILINOGEN 0.2 E.U./dl
[2023-04-19 07:44] LABS: HEMATOCRIT 37.5 % (39.0-48.0); HEMOGLOBIN 11.9 g/dL (13-16.00); MEAN CELL VOLUME 86.8 fL (80.0-100.00); MEAN CORPUSCULAR HEMOGLOBIN 27.5 pg (27.00-32.0); MEAN CORPUSCULAR HGB CONC 31.7 g/dl (32.0-36.0); PLATELET COUNT 159 K/uL (150-450); RED BLOOD COUNT 4.32 M/uL (4.00-6.00); RED CELL DISTRIBUTION WIDTH 16.2 % (11.5-14.5)
[2023-04-19 07:46] LABS: URINE WBC 2.3 uL (0.0-23.2)
[2023-04-19 07:50] LABS: URINE EPITHELIAL CELLS 1.3 uL (0.0-38.8)
[2023-04-19 08:15] LABS: ALBUMIN 3.3 gm/dL (3.4-5.0); BILIRUBIN TOTAL 0.89 mg/dL (0.3-1.2); CALCIUM 9.2 mg/dL (8.5-10.1); CHOL HDL RATIO 2.1 (0-5.0); CREATININE SERUM 1.45 mg/dL (0.70-1.30); GFR 45.93; GLOBULINA 3.9 G/DL (2.4-3.5); POTASSIUM 3.91 mEq/L (3.5-5.1); T4 TOTAL 8.15 UG/DL (4.5-12.1); TOTAL PROTEIN 7.2 gm/dL (6.4-8.2); TSH 2.28 uIU/mL (0.358-3.74)
== END | disposition home or self-care (01) ==
LOC: LAB 06:30
PROVIDERS: ATTEND Internal Medicine
DX: I11.9 Hypertensive heart disease without heart failure (principal); E78.00 Pure hypercholesterolemia, unspecified; R31.9 Hematuria, unspecified; E03.9 Hypothyroidism, unspecified; E11.9 Type 2 diabetes mellitus without complications; Z88.0 Allergy status to penicillin

== ENCOUNTER → 2023-05-03 06:06 | Outpatient (CLI) | payer OTHER ==
[2023-05-03 07:16] LABS: HEMATOCRIT 36.7 % (39.0-48.0); HEMOGLOBIN 11.9 g/dL (13-16.00); MEAN CELL VOLUME 87.6 fL (80.0-100.00); MEAN CORPUSCULAR HEMOGLOBIN 28.3 pg (27.00-32.0); MEAN CORPUSCULAR HGB CONC 32.4 g/dl (32.0-36.0); PLATELET COUNT 175 K/uL (150-450); RED CELL DISTRIBUTION WIDTH 15.4 % (11.5-14.5)
[2023-05-03 07:56] LABS: ALBUMIN 3.2 gm/dL (3.4-5.0); BILIRUBIN TOTAL 1.15 mg/dL (0.3-1.2); CALCIUM 9.1 mg/dL (8.5-10.1); CREATININE SERUM 1.33 mg/dL (0.70-1.30); GFR 50.74; GLOBULINA 3.9 G/DL (2.4-3.5); POTASSIUM 4.01 mEq/L (3.5-5.1); PROSTATIC SPECIFIC ANTIGEN 0.027 NG/ML (0.010-4.00); TOTAL PROTEIN 7.1 gm/dL (6.4-8.2)
[2023-05-03 15:38] LABS: FOLIC ACID 19.38 ng/ml (4.78-20)
== END | disposition home or self-care (01) ==
LOC: LAB 06:06
PROVIDERS: ATTEND Internal Medicine Hematology & Oncology
DX: I10 Essential (primary) hypertension (principal); R74.02 Elevation of levels of lactic acid dehydrogenase [LDH]; K76.89 Other specified diseases of liver; C25.9 Malignant neoplasm of pancreas, unspecified; R97.8 Other abnormal tumor markers; R97.0 Elevated carcinoembryonic antigen [CEA]; R97.20 Elevated prostate specific antigen [PSA]; R77.2 Abnormality of alphafetoprotein; D51.8 Other vitamin B12 deficiency anemias; Z80.42 Family history of malignant neoplasm of prostate; C22.0 Liver cell carcinoma; C90.00 Multiple myeloma not having achieved remission; D57.3 Sickle-cell trait; C61 Malignant neoplasm of prostate; Z85.46 Personal history of malignant neoplasm of prostate; D68.9 Coagulation defect, unspecified; E08.65 Diabetes mellitus due to underlying condition with hyperglycemia; E08.21 Diabetes mellitus due to underlying condition with diabetic nephropathy; E08.22 Diabetes mellitus due to underlying condition with diabetic chronic kidney disease; E08.42 Diabetes mellitus due to underlying condition with diabetic polyneuropathy; E73.9 Lactose intolerance, unspecified; E78.5 Hyperlipidemia, unspecified; R19.5 Other fecal abnormalities; R10.10 Upper abdominal pain, unspecified; R93.2 Abnormal findings on diagnostic imaging of liver and biliary tract; Z88.0 Allergy status to penicillin

== ENCOUNTER 2023-05-18 07:56 | Day surgery (SDC) | payer OTHER ==
[2023-05-13 08:52] LABS: PH,URINE 5.5 (5.0-8.0); URINE APPEARANCE Clear; URINE BILIRRUBIN Negative (NEGATIVE); URINE BLOOD Trace; URINE COLOR Yellow; URINE GLUCOSE Negative (NEGATIVE); URINE LEUKOCYTE Negative; URINE NITRATE Negative; URINE PROTEIN Negative (NEGATIVE); URINE UROBILINOGEN 0.2 E.U./dl
[2023-05-13 08:56] LABS: URINE EPITHELIAL CELLS 1.5 uL (0.0-38.8)
[2023-05-13 08:58] LABS: URINE RBC 1.1 uL (0.0-20.8); URINE WBC 0.3 uL (0.0-23.2)
[2023-05-13 09:04] LABS: HEMOGLOBIN 12.3 g/dL (13-16.00); MEAN CELL VOLUME 86.2 fL (80.0-100.00); MEAN CORPUSCULAR HGB CONC 32.4 g/dl (32.0-36.0); PLATELET COUNT 167 K/uL (150-450); RED BLOOD COUNT 4.41 M/uL (4.00-6.00)
[2023-05-13 09:23] LABS: INR 1.06; PARTIAL THROMBOPLASTIN TIME 27.2 SECONDS (22.0-34.0); PROTHROMBIN TIME 11.1 SECONDS (9.0-11.5)
[2023-05-13 09:31] LABS: ALBUMIN 3.4 gm/dL (3.4-5.0); BILIRUBIN TOTAL 1.04 mg/dL (0.3-1.2); CALCIUM 9.5 mg/dL (8.5-10.1); CREATININE SERUM 1.35 mg/dL (0.70-1.30); GFR 49.88; GLOBULINA 3.9 G/DL (2.4-3.5); POTASSIUM 3.73 mEq/L (3.5-5.1); TOTAL PROTEIN 7.3 gm/dL (6.4-8.2)
[2023-05-13 09:44] LABS: TSH 1.83 uIU/mL (0.358-3.74)
[~2023-05-18 07:56] MED LIST changes: +AVAPRO150 MG PO; +B12-FOLIC ACID1 EACH PO; +CARDURA XL4 MG PO; +LIPITOR40 M1 PO; +OSTERA TABLET1 EACH PO
== END 2023-05-18 16:30 | disposition home or self-care (01) ==
LOC: CIR.AMB 07:56
PROVIDERS: ATTEND Specialist
DX: C22.0 Liver cell carcinoma (principal); Z53.8 Procedure and treatment not carried out for other reasons; E03.9 Hypothyroidism, unspecified; E11.9 Type 2 diabetes mellitus without complications; I10 Essential (primary) hypertension; Z20.822 Contact with and (suspected) exposure to COVID-19; Z88.0 Allergy status to penicillin

== ENCOUNTER 2023-07-20 06:12 | Outpatient (CLI) | payer OTHER ==
[2023-07-20 07:14] LABS: HEMATOCRIT 40.5 % (39.0-48.0); HEMOGLOBIN 13.2 g/dL (13-16.00); MEAN CELL VOLUME 85.7 fL (80.0-100.00); MEAN CORPUSCULAR HEMOGLOBIN 27.9 pg (27.00-32.0); MEAN CORPUSCULAR HGB CONC 32.6 g/dl (32.0-36.0); PLATELET COUNT 228 K/uL (150-450); RED BLOOD COUNT 4.73 M/uL (4.00-6.00); RED CELL DISTRIBUTION WIDTH 14.9 % (11.5-14.5)
[2023-07-20 07:29] LABS: ALBUMIN 3.4 gm/dL (3.4-5.0); BILIRUBIN TOTAL 0.8 mg/dL (0.3-1.2); CALCIUM 10.2 mg/dL (8.5-10.1); CREATININE SERUM 1.58 mg/dL (0.70-1.30); GFR 41.6; GLOBULINA 4.1 G/DL (2.4-3.5); POTASSIUM 4.87 mEq/L (3.5-5.1); TOTAL PROTEIN 7.5 gm/dL (6.4-8.2)
== END 2023-07-20 06:14 | disposition home or self-care (01) ==
LOC: LAB 06:12
PROVIDERS: ATTEND Internal Medicine Hematology & Oncology
DX: C22.0 Liver cell carcinoma (principal); C90.00 Multiple myeloma not having achieved remission; D57.3 Sickle-cell trait; C61 Malignant neoplasm of prostate; Z85.46 Personal history of malignant neoplasm of prostate; Z80.42 Family history of malignant neoplasm of prostate; D68.9 Coagulation defect, unspecified; E08.65 Diabetes mellitus due to underlying condition with hyperglycemia; E08.22 Diabetes mellitus due to underlying condition with diabetic chronic kidney disease; E08.42 Diabetes mellitus due to underlying condition with diabetic polyneuropathy; I10 Essential (primary) hypertension; I73.9 Peripheral vascular disease, unspecified; E78.5 Hyperlipidemia, unspecified; E03.9 Hypothyroidism, unspecified; R19.5 Other fecal abnormalities; R10.10 Upper abdominal pain, unspecified; R93.2 Abnormal findings on diagnostic imaging of liver and biliary tract

== ENCOUNTER 2023-08-09 06:50 | Outpatient (CLI) | payer OTHER ==
[2023-08-09 08:05] LABS: HEMATOCRIT 39.2 % (39.0-48.0); HEMOGLOBIN 12.8 g/dL (13-16.00); MEAN CELL VOLUME 84.6 fL (80.0-100.00); MEAN CORPUSCULAR HEMOGLOBIN 27.6 pg (27.00-32.0); MEAN CORPUSCULAR HGB CONC 32.7 g/dl (32.0-36.0); PLATELET COUNT 210 K/uL (150-450); RED BLOOD COUNT 4.64 M/uL (4.00-6.00); RED CELL DISTRIBUTION WIDTH 15.1 % (11.5-14.5)
[2023-08-09 08:42] LABS: ALBUMIN 3.1 gm/dL (3.4-5.0); BILIRUBIN TOTAL 0.92 mg/dL (0.3-1.2); CALCIUM 9.5 mg/dL (8.5-10.1); CREATININE SERUM 1.38 mg/dL (0.70-1.30); GFR 48.63; GLOBULINA 3.9 G/DL (2.4-3.5); POTASSIUM 4.77 mEq/L (3.5-5.1)
== END 2023-08-09 06:51 | disposition home or self-care (01) ==
LOC: LAB 06:50
PROVIDERS: ATTEND Internal Medicine Hematology & Oncology
DX: D50.8 Other iron deficiency anemias (principal); I10 Essential (primary) hypertension; C22.9 Malignant neoplasm of liver, not specified as primary or secondary; R97.8 Other abnormal tumor markers

== ENCOUNTER → 2023-08-26 06:57 | Outpatient (CLI) | payer OTHER ==
[2023-08-26 07:32] LABS: URINE APPEARANCE Clear; URINE BILIRRUBIN Negative (NEGATIVE); URINE BLOOD Negative; URINE COLOR Yellow; URINE GLUCOSE Negative (NEGATIVE); URINE LEUKOCYTE Negative; URINE NITRATE Negative; URINE PROTEIN Negative (NEGATIVE); URINE UROBILINOGEN 0.2 E.U./dl
[2023-08-26 07:36] LABS: URINE BACTERIA 11.3 uL (0.0-1933); URINE RBC 2.7 uL (0.0-20.8)
[2023-08-26 07:37] LABS: URINE EPITHELIAL CELLS 0.6 uL (0.0-38.8); URINE WBC 1.2 uL (0.0-23.2)
[2023-08-26 07:56] LABS: HEMATOCRIT 42.2 % (39.0-48.0); HEMOGLOBIN 13.6 g/dL (13-16.00); MEAN CELL VOLUME 85.1 fL (80.0-100.00); MEAN CORPUSCULAR HEMOGLOBIN 27.4 pg (27.00-32.0); MEAN CORPUSCULAR HGB CONC 32.2 g/dl (32.0-36.0); PLATELET COUNT 285 K/uL (150-450); RED BLOOD COUNT 4.96 M/uL (4.00-6.00); RED CELL DISTRIBUTION WIDTH 15.2 % (11.5-14.5)
[2023-08-26 08:00] LABS: ALBUMIN 3.2 gm/dL (3.4-5.0); CALCIUM 10.1 mg/dL (8.5-10.1); CREATININE SERUM 1.45 mg/dL (0.70-1.30); GFR 45.93; PHOSPHOROUS 3.1 mg/dL (2.5-4.9); POTASSIUM 4.46 mEq/L (3.5-5.1)
[2023-08-26 08:31] LABS: URIC ACID 8.8 mg/dL (3.5-8.5)
== END | disposition home or self-care (01) ==
LOC: LAB 06:57
PROVIDERS: ATTEND Internal Medicine Nephrology
DX: N18.32 Chronic kidney disease, stage 3b (principal); I10 Essential (primary) hypertension; R80.9 Proteinuria, unspecified

== ENCOUNTER 2023-09-20 06:30 | Outpatient (CLI) | payer OTHER ==
[2023-09-20 07:20] LABS: HEMATOCRIT 41.5 % (39.0-48.0); HEMOGLOBIN 13.5 g/dL (13-16.00); MEAN CELL VOLUME 82.9 fL (80.0-100.00); MEAN CORPUSCULAR HEMOGLOBIN 26.9 pg (27.00-32.0); MEAN CORPUSCULAR HGB CONC 32.4 g/dl (32.0-36.0); PLATELET COUNT 318 K/uL (150-450); RED BLOOD COUNT 5.01 M/uL (4.00-6.00); RED CELL DISTRIBUTION WIDTH 15.7 % (11.5-14.5)
[2023-09-20 08:01] LABS: BILIRUBIN TOTAL 0.95 mg/dL (0.3-1.2); CALCIUM 9.9 mg/dL (8.5-10.1); CREATININE SERUM 1.59 mg/dL (0.70-1.30); GFR 41.29; GLOBULINA 4.2 G/DL (2.4-3.5); POTASSIUM 4.67 mEq/L (3.5-5.1); TOTAL PROTEIN 7.2 gm/dL (6.4-8.2)
== END 2023-09-20 06:31 | disposition home or self-care (01) ==
LOC: LAB 06:30
PROVIDERS: ATTEND Internal Medicine Hematology & Oncology
DX: C22.0 Liver cell carcinoma (principal); Z80.42 Family history of malignant neoplasm of prostate; C90.00 Multiple myeloma not having achieved remission; D57.3 Sickle-cell trait; C61 Malignant neoplasm of prostate; Z85.46 Personal history of malignant neoplasm of prostate; D68.9 Coagulation defect, unspecified; E08.65 Diabetes mellitus due to underlying condition with hyperglycemia; E08.21 Diabetes mellitus due to underlying condition with diabetic nephropathy; E08.22 Diabetes mellitus due to underlying condition with diabetic chronic kidney disease; E08.42 Diabetes mellitus due to underlying condition with diabetic polyneuropathy; I10 Essential (primary) hypertension; I73.9 Peripheral vascular disease, unspecified; E78.5 Hyperlipidemia, unspecified; E03.9 Hypothyroidism, unspecified; R19.5 Other fecal abnormalities; R10.10 Upper abdominal pain, unspecified; R93.2 Abnormal findings on diagnostic imaging of liver and biliary tract